=== PATIENT | female | born 1955 | race Two or more races ===

== ENCOUNTER 2023-05-05 12:37 | Emergency (ER) | payer MEDICAID ==
[~2023-05-05] VITALS: Ht 149.9 cm; Wt 61.9 kg
[2023-05-05 15:06] VITALS: BP 144/66; PULSE 75; RESP 18; TEMP 97.7; O2SAT 97
[2023-05-05] MEDS ORDERED: DexAMETHasone 4 MG TAB PO ONE (16:30)
[2023-05-05] MEDS ORDERED: HYDROcodone-ACET 5/325MG TAB PO ONE (16:30)
[2023-05-05] MEDS ORDERED: TRAM50TA2 PO ×2 (16:44)
== END 2023-05-05 16:56 | disposition home or self-care (01) ==
LOC: ER 12:37 → EDBD 12:37 → ER 16:56
DX: R51.9 Headache, unspecified (principal); M50.30 Other cervical disc degeneration, unspecified cervical region; M51.36 Other intervertebral disc degeneration, lumbar region; M62.830 Muscle spasm of back
CPT/HCPCS: 70450; 72125; 72131; 93005; 99284; J8540